=== PATIENT | female | born 1955 | race American Indian/Alaskan Native ===

== ENCOUNTER 2019-09-17 11:06 | Outpatient (CLI) | payer OTHER ==
--- NOTE | 2019-09-17 14:15 | Mammography Report ---
DIGITAL SCREENING MAMMOGRAM WITH CAD, 09/17/2019 INDICATION: Routine screening mammography. TECHNIQUE: Digital bilateral 2D mammography was obtained in the craniocaudal and mediolateral obliq ue projections. This examination was interpreted with the benefit of Computer-Aided Detection analysi s. COMPARISON: 05/12/2017 FINDINGS: Breast Density: The breasts are heterogeneously dense, which may obscure small masses. An irregular right upper asymmetry with possible calcifications requires additional imaging. No archi tectural distortion of the right breast. There is no evidence of dominant mass, suspicious calcificat ions or architectural distortion in the left breast. IMPRESSION: Right asymmetry requiring additional imaging. Recommend recall for right exaggerated CC a nd spot magnification MLO views and right breast ultrasound if needed. Follow up recommendation: Special View: Mag Category 0: Incomplete. Needs additional imaging evaluation and/or prior mammograms for comparison. A "normal" or negative report should not discourage follow up or biopsy of a clinically significant f inding. A written summary of these findings will be mailed to the patient. The patient will be entered into a mammography reporting system which will generate a reminder letter for the patient's next appointmen t at the appropriate interval. The [employer] recommends yearly mammograms starting at age 40 and continuing as l vi as a woman is in good health. Breast MRI is recommended for women with an approximate 20-25% or greater lifetime risk of breast cancer, including women with a strong family history of breast or ova epifanio cancer or who have been treated for Hodgkin's disease. Signer Name: Hakeem Mcgraw MD Signed: 09/17/2019 2:11 PM Workstation Name: [id number]
--- NOTE | 2019-09-17 14:23 | Ultrasound Report ---
ULTRASOUND THYROID INDICATION: NONTOXIC SINGLE THYROID NODULE. COMPARISON: None available. FINDINGS: RIGHT LOBE: Size: 4.0 x 1.1 x 1.5 cm. Echogenicity: Normal. Nodules: A mildly complex cyst in the midportion measures 1.3 x 0.4 x 0.7 cm LEFT LOBE: Size: 4.6 x 3.0 x 3.3 cm. Echogenicity: Normal. Nodules: A complex lower pole nodule has septations and numerous cystic spaces with several mural nod ules and measures 3.3 x 3.2 x 3.0 cm. ISTHMUS: Normal Thickness: 0.3 cm. Lymph nodes: No abnormal lymph nodes. Parathyroid glands: No abnormal parathyroid gland. Additional findings: None. IMPRESSION: 1. A 3.3 cm complex nodule of the lower pole of the left thyroid. Recommend ultrasound-guided FNA. 2. A benign complex cysts in the midportion of the right thyroid. ACR TI-RADS Recommendations TI-RADS 1 (0 points) -- Benign. No FNA or follow-up. TI-RADS 2 (1-2 points) -- Not suspicious. No FNA or follow-up. TI-RADS 3 (3 points) -- Mildly suspicious. Follow up in 1 year if 1.5 cm. FNA if 2.5 cm. TI-RADS 4 (4-6 points) -- Moderately suspicious. Follow up in 1 year if 1.0 cm. FNA if 1.5 cm. TI-RADS 5 (7+ points) -- Highly suspicious. Follow up in 1 year if 0.5 cm. FNA if 1.0 cm. Signer Name: Hakeem Mcgraw MD Signed: 09/17/2019 2:18 PM Workstation Name: [id number]
== END 2019-09-17 11:07 | disposition home or self-care (01) ==
LOC: SPVWC 11:06
PROVIDERS: ATTEND Internal Medicine
DX: Z12.31 Encounter for screening mammogram for malignant neoplasm of breast (principal); E04.1 Nontoxic single thyroid nodule
CPT/HCPCS: 76536; 77067